=== PATIENT | male | born 1965 | race Caucasian/White ===

== ENCOUNTER 2019-02-04 07:34 | Emergency (ER) | payer BC, OTHER ==
[2019-02-04] MEDS ORDERED: Ketorolac Tromethamine 30 MG/ML VIAL ONE (08:23)
[2019-02-04] MEDS ORDERED: HYDROcodone/Acetaminophen 10/325 mg Tablet ONE (08:23)
--- NOTE | 2019-02-04 08:53 | RAD ---
LEFT HIP 2 VIEWS: HISTORY: Intermittent hip pain. FINDINGS: Joint space appears fairly well preserved. There is no fracture or other abnormalities. IMPRESSION: Unremarkable left hip. POS: [facility]
== END 2019-02-04 10:04 | disposition home or self-care (01) ==
LOC: ERS 07:34
DX: M25.552 Pain in left hip (principal); F17.220 Nicotine dependence, chewing tobacco, uncomplicated
CPT/HCPCS: 96372; J1885